=== PATIENT | male | born 1990 | race Caucasian/White ===

== ENCOUNTER 2022-01-18 12:46 | Inpatient (IN) | payer OTHER ==
[~2022-01-18] VITALS: Ht 175.3 cm; Wt 65.3 kg
[2022-01-18] MEDS ORDERED: ONDANSETRON HCL 4 MG/2 ML VIAL IVP ONE (14:15)
[2022-01-18] MEDS ORDERED: KETOROLAC TROMETHAMINE 30 MG/ML VIAL IVP ONE (14:15)
[2022-01-18] MEDS ORDERED: SODIUM CHLORIDE 0.9% 1,000 ML IV ONE (14:15)
[2022-01-18 14:27] LABS: BASOPHILS % (AUTO) 0.3 % (0.0-2.0); EOSINOPHILS % (AUTO) 0.2 % (1.0-6.0); HEMATOCRIT 47.3 % (41-53); HEMOGLOBIN 16.1 g/dL (13.5-17.5); LYMPHOCYTES % (AUTO) 10.3 % (22.0-44.0); MEAN CORPUSCULAR HEMOGLOBIN 29.6 pg (26.0-34.0); MEAN CORPUSCULAR HGB CONC 34.1 G/dL (31.0-37.0); MEAN CORPUSCULAR VOLUME 87 fL (80-100); MONOCYTES # (AUTO) 0.5 K/uL (0.1-1.0); MONOCYTES % (AUTO) 5.2 % (2.0-9.0); NEUTROPHILS # (AUTO) 7.9 K/uL (1.8-7.7); PLATELET COUNT (AUTO) 338 K/uL (150-450); RED BLOOD CELL COUNT(AUTO) 5.44 MIL/uL (4.50-5.90); RED CELL DISTRIBUTION WIDTH 12.7 % (11.5-14.5)
[2022-01-18 14:37] LABS: ANION GAP 11 mmol/L (8-16); CALCIUM, TOTAL 9.9 mg/dL (8.8-10.5); CARBON DIOXIDE 26 mmol/L (22-29); CHLORIDE 103 mmol/L (98-107); CREATININE 0.91 mg/dL (0.60-1.30); GLOMERULAR FILTR. RATE CALC > 60 mL/min (>60); GLUCOSE,RANDOM 106 mg/dL (70-110); POTASSIUM 3.7 mmol/L (3.5-5.1); SODIUM SERUM 140 mmol/L (136-145); UREA NITROGEN, BLOOD 8 mg/dL (7-18)
[2022-01-18 14:45] LABS: ALANINE AMINOTRANSFERASE 18 U/L (12-78); ALBUMIN 4.8 g/dL (3.4-5.0); ALKALINE PHOSPHATASE 79 U/L (46-116); ASPARTATE AMINOTRANSFERASE 13 U/L (15-37); TOTAL PROTEIN, SERUM 8.5 g/dL (6.4-8.2)
[2022-01-18 15:25] LABS: AMPHET/METH SCREEN,URINE NEGATIVE (NEGATIVE); BARBITURATE SCREEN, URINE NEGATIVE (NEGATIVE); BENZODIAZEPINES SCREEN,URINE NEGATIVE (NEGATIVE); CANNABINOID SCREEN,URINE POSITIVE (NEGATIVE); COCAINE SCREEN,URINE NEGATIVE (NEGATIVE); METHADONE SCREEN, URINE NEGATIVE (NEGATIVE); OPIATE SCREEN,URINE POSITIVE (NEGATIVE)
[2022-01-18 15:26] LABS: PHENCYCLIDINE SCREEN,URINE NEGATIVE (NEGATIVE)
[2022-01-18] MEDS ORDERED: ACETAMINOPHEN 325 MG TABLET PO PRN ×2 (15:45→18:30)
[2022-01-18] MEDS ORDERED: ACETAMINOPHEN 1000 MG/ISO-OSM 100 ML IV ONE (15:45)
[2022-01-18] MEDS ORDERED: ONDANSETRON HCL 4 MG/2 ML VIAL IVP PRN ×2 (15:45→18:30)
[2022-01-18 16:02] LABS: COVID AG,FIA SOURCE NASOPHARYNGEAL
[2022-01-18] MEDS ORDERED: DICYCLOMINE HCL 10 MG CAPSULE PO PRN (18:30)
[2022-01-18] MEDS ORDERED: MAG HYDROX/AL HYDROX/SIMETH ES 30 ML SUSPENSION UDCUP PO PRN (18:30)
[2022-01-18] MEDS ORDERED: IPRATROPIUM BROMIDE 0.5 MG/2.5 ML NEB SOLUTION NEB PRN (18:30)
[2022-01-18] MEDS ORDERED: ALBUTEROL SULFATE 2.5 MG/0.5 ML NEB SOLUTION NEB PRN (18:30)
[2022-01-18] MEDS ORDERED: MAGNESIUM HYDROXIDE SUSPENSION 30 ML UDCUP PO PRN (18:30)
[2022-01-18] MEDS ORDERED: BISACODYL 10 MG RECTAL RECTAL SUPPOSITORY PR PRN (18:30)
[2022-01-18] MEDS ORDERED: PROMETHAZINE HCL 25 MG TABLET PO PRN (18:30)
[2022-01-18] MEDS ORDERED: CloNIDine HCL 0.1 MG TABLET PO PRN (18:30)
[2022-01-18] MEDS: SODIUM CHLORIDE 0.45% 1,000 ML IV SCH (19:41)
[2022-01-18] MEDS: IBUPROFEN 600 MG TABLET PO PRN (19:56)
[2022-01-18] MEDS: BACLOFEN 10 MG TABLET PO PRN (19:57)
[2022-01-18] MEDS: ACETAMINOPHEN 325 MG TABLET PO PRN (19:58)
[2022-01-18] MEDS: LORazepam 1 MG TABLET PO PRN (19:58)
[2022-01-18] MEDS: DOCUSATE SODIUM 100 MG CAPSULE PO SCH (20:05)
[2022-01-18 20:40] VITALS: BP 118/72
[2022-01-18] MEDS: HEPARIN SODIUM,PORCINE 5,000 UNITS/ML VIAL SQ SCH (23:21)
[2022-01-18] MEDS: TraZODone HCL 50 MG TABLET PO PRN (23:21)
[2022-01-19 00:07] VITALS: BP 145/72
[2022-01-19] MEDS: HydrOXYzine PAMOATE 50 MG CAPSULE PO PRN ×3 (00:53→21:24)
[2022-01-19] MEDS: LORazepam 1 MG TABLET PO PRN ×2 (04:31→23:45)
[2022-01-19] MEDS: BACLOFEN 10 MG TABLET PO PRN ×2 (04:31→15:25)
[2022-01-19 04:54] VITALS: BP 127/79
[2022-01-19 08:00] VITALS: BP 122/73
[2022-01-19] MEDS: DOCUSATE SODIUM 100 MG CAPSULE PO SCH ×2 (09:00→21:00)
[2022-01-19] MEDS: HEPARIN SODIUM,PORCINE 5,000 UNITS/ML VIAL SQ SCH ×3 (09:23→23:45)
[2022-01-19] MEDS: SODIUM CHLORIDE 0.45% 1,000 ML IV SCH ×2 (09:23→21:28)
[2022-01-19] MEDS: IBUPROFEN 600 MG TABLET PO PRN ×2 (09:24→21:24)
[2022-01-19] MEDS: PANTOPRAZOLE SODIUM 40 MG/VIAL IVP SCH (09:26)
[2022-01-19] MEDS: ACETAMINOPHEN 325 MG TABLET PO PRN (15:25)
[2022-01-19 15:29] VITALS: BP 110/74
[2022-01-19 20:00] VITALS: BP 111/58
[2022-01-19] MEDS: TraZODone HCL 50 MG TABLET PO PRN (21:24)
[2022-01-19] MEDS: LOPERAMIDE HCL 2 MG/15 ML SUSPENSION UDCUP PO PRN (21:25)
[2022-01-20 03:43] VITALS: BP 121/52
[2022-01-20 08:10] VITALS: BP 121/66
[2022-01-20] MEDS: PANTOPRAZOLE SODIUM 40 MG/VIAL IVP SCH (08:38)
[2022-01-20] MEDS: HEPARIN SODIUM,PORCINE 5,000 UNITS/ML VIAL SQ SCH ×2 (08:39→17:25)
[2022-01-20] MEDS: DOCUSATE SODIUM 100 MG CAPSULE PO SCH ×2 (08:39→21:00)
[2022-01-20] MEDS: IBUPROFEN 600 MG TABLET PO PRN ×2 (08:39→20:56)
[2022-01-20 10:07] VITALS: BP 121/66
[2022-01-20 10:24] LABS: BASOPHILS % (AUTO) 0.2 % (0.0-2.0); EOSINOPHILS % (AUTO) 0.2 % (1.0-6.0); HEMATOCRIT 41.8 % (41-53); HEMOGLOBIN 14.2 g/dL (13.5-17.5); LYMPHOCYTES # (AUTO) 1.3 K/uL (1.0-4.8); MEAN CORPUSCULAR HEMOGLOBIN 29.6 pg (26.0-34.0); MEAN CORPUSCULAR HGB CONC 33.9 G/dL (31.0-37.0); MEAN CORPUSCULAR VOLUME 87 fL (80-100); MONOCYTES # (AUTO) 0.7 K/uL (0.1-1.0); MONOCYTES % (AUTO) 9.5 % (2.0-9.0); NEUTROPHILS # (AUTO) 5.2 K/uL (1.8-7.7); NEUTROPHILS % (AUTO) 72.1 % (40.0-70.0); PLATELET COUNT (AUTO) 269 K/uL (150-450); RED CELL DISTRIBUTION WIDTH 13.1 % (11.5-14.5)
[2022-01-20 10:33] LABS: ANION GAP 7 mmol/L (8-16); CALCIUM, TOTAL 8.9 mg/dL (8.8-10.5); CARBON DIOXIDE 24 mmol/L (22-29); CHLORIDE 109 mmol/L (98-107); CREATININE 0.76 mg/dL (0.60-1.30); GLUCOSE,RANDOM 114 mg/dL (70-110); POTASSIUM 3.4 mmol/L (3.5-5.1); SODIUM SERUM 140 mmol/L (136-145); UREA NITROGEN, BLOOD 9 mg/dL (7-18)
[2022-01-20 10:34] LABS: GLOMERULAR FILTR. RATE CALC > 60 mL/min (>60)
[2022-01-20 10:39] LABS: ALANINE AMINOTRANSFERASE 13 U/L (12-78); ALBUMIN 3.8 g/dL (3.4-5.0); ALKALINE PHOSPHATASE 61 U/L (46-116); ASPARTATE AMINOTRANSFERASE 7 U/L (15-37); BILIRUBIN,TOTAL 0.8 mg/dL (0.1-1.0); TOTAL PROTEIN, SERUM 6.9 g/dL (6.4-8.2)
[2022-01-20] MEDS: LOPERAMIDE HCL 2 MG/15 ML SUSPENSION UDCUP PO PRN (12:47)
[2022-01-20] MEDS: SODIUM CHLORIDE 0.45% 1,000 ML IV SCH (12:49)
[2022-01-20 13:00] VITALS: BP 120/60
[2022-01-20] MEDS ORDERED: POTASSIUM CHLORIDE 20 MEQ ER TABLET PO ONE (16:15)
[2022-01-20 18:57] VITALS: BP 120/60
[2022-01-20 20:23] VITALS: BP 123/67
[2022-01-21] MEDS: SODIUM CHLORIDE 0.45% 1,000 ML IV SCH (02:12)
[2022-01-21] MEDS: BACLOFEN 10 MG TABLET PO PRN ×2 (02:14→19:47)
[2022-01-21 04:15] VITALS: BP 120/69
[2022-01-21 07:51] VITALS: BP 110/72
[2022-01-21] MEDS: PANTOPRAZOLE SODIUM 40 MG/VIAL IVP SCH (08:10)
[2022-01-21] MEDS: DOCUSATE SODIUM 100 MG CAPSULE PO SCH ×2 (08:10→19:48)
[2022-01-21] MEDS: HEPARIN SODIUM,PORCINE 5,000 UNITS/ML VIAL SQ SCH ×5 (08:10→23:41)
[2022-01-21 15:15] VITALS: BP 116/74
[2022-01-21 18:37] VITALS: BP 112/60
[2022-01-21 21:53] VITALS: BP 120/69
[2022-01-21] MEDS: ZOLPIDEM TARTRATE 5 MG TABLET PO PRN (23:40)
[2022-01-22 04:15] VITALS: BP 111/66
[2022-01-22] MEDS: ACETAMINOPHEN 325 MG TABLET PO PRN ×2 (04:23→21:48)
[2022-01-22] MEDS: HEPARIN SODIUM,PORCINE 5,000 UNITS/ML VIAL SQ SCH ×3 (08:03→23:38)
[2022-01-22] MEDS: IBUPROFEN 600 MG TABLET PO PRN (08:03)
[2022-01-22] MEDS: PANTOPRAZOLE SODIUM 40 MG/VIAL IVP SCH (08:04)
[2022-01-22 08:26] VITALS: BP 123/77
[2022-01-22] MEDS: DOCUSATE SODIUM 100 MG CAPSULE PO SCH ×2 (09:00→19:52)
[2022-01-22 15:48] VITALS: BP 119/67
[2022-01-22 18:44] VITALS: BP 119/67
[2022-01-22 19:30] VITALS: BP 112/76
[2022-01-22] MEDS: ZOLPIDEM TARTRATE 5 MG TABLET PO PRN (21:46)
== END 2022-01-23 07:20 | DRG 897 ==
LOC: EMS 12:50 → 6S 18:33
PROVIDERS: ADMIT Hospitalist; ATTEND Hospitalist
DX: F11.23 Opioid dependence with withdrawal (principal); F41.9 Anxiety disorder, unspecified; Z20.822 Contact with and (suspected) exposure to COVID-19; F17.210 Nicotine dependence, cigarettes, uncomplicated; M25.50 Pain in unspecified joint; Z71.6 Tobacco abuse counseling
CPT/HCPCS: 80053; 80307; 83735; 85025; 93005; 99285; C9113; J0131; J1644; J1885; J2405; J7030